=== PATIENT | female | born 1975 | race American Indian/Alaskan Native ===

== ENCOUNTER 2016-09-16 19:15 | Emergency (ER) | payer BC, MEDICAID ==
[2016-09-16 19:28] VITALS: BMI 28.5
[2016-09-16 19:30] VITALS: TEMP 97.4
--- NOTE | 2016-09-16 20:11 | ED PDOC ---
Arrival/HPI - General Chief Complaint: Back Pain Time Seen by Provider: 09/16/16 19:40 Historian: Patient - History of Present Illness Narrative History of Present Illness (Text): 09/16/16 20:08 41yo female present with complaint of lower back pain x 2weeks. States she was seen by her PMD for the pain and given medication but is not helping. Pain is usually worse with flexion or after doing house chores. She denies trauma, focal weakness, urinary/fecal incontinence, abdominal pain, urinary symptoms, any other complaint. Past Medical History - Provider Review Nursing Documentation Reviewed: Yes - Infectious Disease Hx of Infectious Diseases: None - Tetanus Immunization Tetanus Immunization: Unknown - Cardiac Hx Hypertension: Yes - Pulmonary Hx Tuberculosis: No - Neurological HX Cerebrovascular Accident: No Hx Seizures: No - Renal Hx Renal Disorder: No - Endocrine/Metabolic Hx Endocrine Disorders: No - Hematological/Oncological Hx Blood Disorders: No Hx Cancer: No - Integumentary Hx Dermatological Disorder: No - Musculoskeletal/Rheumatological Hx Musculoskeletal Disorders: No - Gastrointestinal Hx Gastrointestinal Disorders: No - Genitourinary/Gynecological Hx Genitourinary Disorders: No Hx Sexually Transmitted Diseases: No - Psychiatric Hx Anxiety: Yes Hx Depression: Yes Hx Emotional Abuse: No Hx Physical Abuse: No 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) - Past Surgical History Past Surgical History: No Previous - Anesthesia Hx Anesthesia: No - Suicidal Assessment Feels Threatened In Home Enviroment: No Family/Social History - Physician Review Nursing Documentation Reviewed: Yes Family/Social History: Unknown Family HX Smoking Status: Never Smoked Hx Alcohol Use: Yes (few drinks tonight) Frequency of alcohol use: Socially Amount per day: 4 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) Substance used: cocaine Hx Substance Use Treatment: No Allergies/Home Meds Allergies/Adverse Reactions: Allergies tomato Allergy (Verified 09/16/16 19:28) ITCHING Home Medications: Home Meds Medication Instructions Recorded Confirmed QUEtiapine [SEROquel] 50 mg PO HS 06/03/16 09/16/16 Sertraline HCl [Zoloft] 25 mg PO DAILY 06/03/16 09/16/16 amLODIPine [Norvasc] 5 mg PO DAILY 06/03/16 09/16/16 Review of Systems - Physician Review All systems were reviewed & negative as marked: Yes - Review of Systems Constitutional: Normal Eyes: Normal ENT: Normal Respiratory: Normal Cardiovascular: Normal Gastrointestinal: Normal Genitourinary Female: Normal Musculoskeletal: Back Pain Skin: Normal Neurological: Normal Endocrine: Normal Hemo/Lymphatic: Normal Psychiatric: Normal Physical Exam Vital Signs Reviewed: Yes Vital Signs Temp Pulse Resp BP Pulse Ox 09/16/16 19:30 97.4 F L 118 H 16 113/82 100 Temperature: Afebrile Blood Pressure: Normal Pulse: Tachycardic Respiratory Rate: Normal Appearance: Positive for: Well-Appearing, Non-Toxic, Comfortable Pain Distress: None Mental Status: Positive for: Alert and Oriented X 3 - Systems Exam Head: Present: Atraumatic, Normocephalic Pupils: Present: PERRL Extroacular Muscles: Present: EOMI Conjunctiva: Present: Normal Mouth: Present: Moist Mucous Membranes Neck: Present: Normal Range of Motion Respiratory/Chest: Present: Clear to Auscultation, Good Air Exchange. No: Respiratory Distress, Accessory Muscle Use Cardiovascular: Present: Regular Rate and Rhythm, Normal S1, S2. No: Murmurs Abdomen: Present: Normal Bowel Sounds. No: Tenderness, Distention, Peritoneal Signs Back: Present: Midline Tenderness, Paraspinal Tenderness. No: Pain with Leg Raise Upper Extremity: Present: Normal Inspection. No: Cyanosis, Edema Lower Extremity: Present: Normal Inspection. No: Edema Neurological: Present: GCS=15, CN II-XII Intact, Speech Normal Skin: Present: Warm, Dry, Normal Color. No: Rashes Psychiatric: Present: Alert, Oriented x 3, Normal Insight, Normal Concentration Medical Decision Making ED Course and Treatment: 09/16/16 21:33 LS xray - No acute finding Pt's pain improved in ED. She was ambulatory. She have no neurological deficit. Result was DW the pt. she was referred to ortho. CT home with flexeril and Naprosyn. [facility] ED for any new or worsening symptoms. - Lab Interpretations Lab Results: Lab Results 09/16/16 20:15: Urine Color Yellow, Urine Appearance Sl cloudy, Urine pH 6.5, Ur Specific [place] <= 1.005, Urine Protein Negative, Urine Glucose (UA) Negative, Urine Ketones Negative, Urine Blood Trace-lysed H, Urine Nitrate Negative, Urine Bilirubin Negative, Urine Urobilinogen 0.2, Ur Leukocyte Esterase Small H, Urine RBC 0 - 2, Urine WBC Negative, Ur Epithelial Cells 0 - 2 - RAD Interpretation Radiology Orders: 09/16/16 19:57 LS SPINE WITH OBL > 18 YRS OLD [RAD] Stat - Medication Orders Current Medication Orders: Discontinued Medications Diazepam (Valium) 5 mg PO ONCE ONE PRN Reason: Protocol Stop: 09/16/16 20:00 Last Admin: 09/16/16 20:16 Dose: 5 mg Ketorolac Tromethamine (Toradol) 60 mg IM STAT STA Stop: 09/16/16 20:00 Last Admin: 09/16/16 20:16 Dose: 60 mg Disposition/Present on Arrival - Present on Arrival Any Indicators Present on Arrival: No History of DVT/PE: No History of Uncontrolled Diabetes: No Urinary Catheter: No History of Decub. Ulcer: No History Surgical Site Infection Following: None - Disposition Have Diagnosis and Disposition been Completed?: Yes Diagnosis: Back pain Disposition: HOME/ ROUTINE Disposition Time: 21:40 Patient Plan: Discharge Condition: STABLE Discharge Instructions (ExitCare): Back Pain (ED) Additional Instructions: Follow up with orthopedist Return to ED for any new or worsening symptoms Prescriptions: Cyclobenzaprine [Cyclobenzaprine HCl] 10 mg PO TID #10 tab Naproxen [Naprosyn] 500 mg PO BID #20 tab Referrals: Telly Deng DO [Staff Provider] - Follow up with primary
[2016-09-16 20:25] LABS: PH,URINE 6.5 (4.7-8.0); URINE BILIRUBIN NEGATIVE (NEGATIVE); URINE BLOOD TRACE-LYSED (NEGATIVE); URINE GLUCOSE (UA) NEGATIVE (NEGATIVE); URINE KETONE NEGATIVE (NEGATIVE); URINE LEUKOCYTE ESTERASE SMALL Leu/uL (NEGATIVE); URINE PROTEIN NEGATIVE mg/dL (<30 mg/dL); URINE UROBILINOGEN 0.2 E.U./dL (<1 E.U./dL)
[2016-09-16 20:30] LABS: URINE APPEARANCE SL CLOUDY (CLEAR); URINE COLOR YELLOW (YELLOW)
[2016-09-16 20:44] LABS: URINE EPITHELIAL CELLS 0 - 2 /hpf (0-5); URINE RBC 0 - 2 /hpf (0-2); URINE WBC NEGATIVE /hpf (0-6)
[2016-09-16 21:43] VITALS: BP 121/71; PULSE 90; RESP 18; O2SAT 99
--- NOTE | 2016-09-17 10:14 | RAD ---
PROCEDURE: Radiographs of the Lumbar Spine. HISTORY: back pain COMPARISON: No prior. FINDINGS: BONES: No evidence of acute compression fractures nor retropulsed fragments. Vertebral bodies exhibit normal stature. There is slight scoliosis convex left versus muscle spasm with side bending to the right. DISC SPACES: Disc space heights are maintained. . Small marginal anterior osteophyte formation noted at the L5-S1 and L4-L5 levels. OTHER FINDINGS: None. IMPRESSION: No acute fractures. Mild levoscoliosis versus muscle spasm/ side bending to the right
== END 2016-09-16 22:08 | disposition home or self-care (01) ==
LOC: ED 19:15
DX: M54.5 Low back pain (principal)
CPT/HCPCS: 72110; 81001; 87086; 96372; 99283; J1885

== ENCOUNTER 2016-12-09 21:06 | Emergency (ER) | payer BC, MEDICAID ==
[2016-12-09 21:19] VITALS: BMI 29.8
[2016-12-09 21:21] VITALS: BP 126/77; PULSE 104; RESP 18; TEMP 98.3; O2SAT 98
--- NOTE | 2016-12-09 22:07 | ED PDOC ---
Arrival/HPI - General Chief Complaint: Lower Extremity Problem/Injury Time Seen by Provider: 12/09/16 21:46 Historian: Patient - History of Present Illness Narrative History of Present Illness (Text): 12/09/16 22:04 41 yo F presents to ER c/o several day h/o R foot / ankle pain, states that she had fractured her foot in May and was seen and evaluated here. She then f/u with a specialist who treated her with a cast. She still f/u with her senior procurement specialist, and recently sent her to PT for chronic R foot and ankle pain. Currently does not take any analgesics for her symptoms and only wears a wrap to her foot. Denies any fever, chills, other joint pain, any new trauma or injury, swelling, knee pain or calf pain. Has no other complaints. Past Medical History - Provider Review Nursing Documentation Reviewed: Yes - Infectious Disease Hx of Infectious Diseases: None - Tetanus Immunization Tetanus Immunization: Unknown - Cardiac Hx Hypertension: Yes - Pulmonary Hx Tuberculosis: No - Neurological HX Cerebrovascular Accident: No Hx Seizures: No - Renal Hx Renal Disorder: No - Endocrine/Metabolic Hx Endocrine Disorders: No - Hematological/Oncological Hx Blood Disorders: No Hx Cancer: No - Integumentary Hx Dermatological Disorder: No - Musculoskeletal/Rheumatological Hx Musculoskeletal Disorders: No - Gastrointestinal Hx Gastrointestinal Disorders: No - Genitourinary/Gynecological Hx Genitourinary Disorders: No Hx Sexually Transmitted Diseases: No - Psychiatric Hx Anxiety: Yes Hx Depression: Yes Hx Emotional Abuse: No Hx Physical Abuse: No 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) - Past Surgical History Past Surgical History: No Previous - Anesthesia Hx Anesthesia: No - Suicidal Assessment Feels Threatened In Home Enviroment: No Family/Social History - Physician Review Nursing Documentation Reviewed: Yes Family/Social History: No Known Family HX Smoking Status: Never Smoked Hx Alcohol Use: Yes (few drinks tonight) Amount per day: 4 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) Substance used: cocaine Hx Substance Use Treatment: No Allergies/Home Meds Allergies/Adverse Reactions: Allergies tomato Allergy (Verified 09/16/16 19:28) ITCHING Home Medications: Home Meds Medication Instructions Recorded Confirmed QUEtiapine [SEROquel] 50 mg PO HS 06/03/16 12/09/16 Sertraline HCl [Zoloft] 25 mg PO DAILY 06/03/16 12/09/16 amLODIPine [Norvasc] 5 mg PO DAILY 06/03/16 12/09/16 Review of Systems - Review of Systems Constitutional: Normal. absent: Fatigue, Weight Change, Fevers Musculoskeletal: Normal, Arthralgias. absent: Back Pain, Neck Pain, Joint Swelling Skin: Normal. absent: Rash, Pruritis, Skin Lesions Physical Exam Vital Signs Reviewed: Yes Vital Signs Temp Pulse Resp BP Pulse Ox 12/09/16 21:20 98.3 F 104 H 18 126/77 98 Temperature: Afebrile Blood Pressure: Normal Pulse: Tachycardic Respiratory Rate: Normal Appearance: Positive for: Well-Appearing, Non-Toxic, Comfortable Pain Distress: None Mental Status: Positive for: Alert and Oriented X 3 - Systems Exam Lower Extremity: Present: Normal Inspection, NORMAL PULSES, Normal ROM, Neurovascularly Intact, Capillary Refill < 2 s. No: Edema, CALF TENDERNESS, Cyanosis, Vero's Sign, Tenderness, Swelling, Erythema, Deformity, Temperature Abnormalties Neurological: Present: GCS=15, CN II-XII Intact, Motor Func Grossly Intact, Normal Sensory Function Skin: Present: Warm, Dry, Normal Color. No: Rashes, Erythematous, Cold Medical Decision Making ED Course and Treatment: 12/09/16 22:07 41 yo F presents to ER c/o several day h/o R foot / ankle pain, has a h/o fracture to the R foot dx in May, currently she f/u with a specialist sent her to PT. Prior ED visits reviewed, pt was seen here in 06/03/16, was dx with an avulsion fracture to the navicular bone of the R foot. Pt medicated with naprosyn po, advised to take NSAIDs as Rx and to take with food to avoid gastritis and stomach ulcers. Otherwise encouraged to continue PT and f/u with senior procurement specialist. Instructed to return to the ER at any time for any new or worsening symptoms. - PA / [employer] / Resident Statement MD/DO has reviewed & agrees with the documentation as recorded. Disposition/Present on Arrival - Present on Arrival Any Indicators Present on Arrival: No History of DVT/PE: No History of Uncontrolled Diabetes: No Urinary Catheter: No History of Decub. Ulcer: No History Surgical Site Infection Following: None - Disposition Have Diagnosis and Disposition been Completed?: Yes Diagnosis: H/O fracture of foot, Foot pain, right Disposition: HOME/ ROUTINE Disposition Time: 22:11 Patient Plan: Discharge Condition: GOOD Discharge Instructions (ExitCare): Arthritis (ED), Arthralgia (ED) Print Language: MONTSERRATIAN Additional Instructions: Continue to follow up with your senior procurement specialist and continue physical therapy. Take medication as prescribed. Return to the ER at any time for any new or worsening symptoms. Prescriptions: Meloxicam [Mobic] 15 mg PO DAILY PRN #30 tab PRN Reason: Pain, Moderate (4-7) Referrals: Quinten James, [Primary Care Provider] - Follow up with primary Forms: WORK NOTE
[2016-12-09] MEDS ORDERED: Naproxen 550 mg Tab PO STA (22:22)
== END 2016-12-09 22:31 | disposition home or self-care (01) ==
LOC: ED 21:06
DX: M79.671 Pain in right foot (principal); Z87.81 Personal history of (healed) traumatic fracture

== ENCOUNTER 2018-01-31 19:21 | Emergency (ER) | payer MEDICAID ==
[2018-01-31 19:35] VITALS: BMI 33.3
[2018-01-31 19:41] VITALS: BP 133/94; PULSE 119; RESP 18; TEMP 98.8; O2SAT 97
--- NOTE | 2018-01-31 19:43 | ED PDOC ---
Arrival/HPI - General Chief Complaint: Psychiatric Evaluation Time Seen by Provider: 01/31/18 19:27 Historian: Patient - History of Present Illness Narrative History of Present Illness (Text): 01/31/18 19:45 42 year old female, with past medical history of hypertension, anxiety and depression on Seroquel and Zoloft medications, presents to the Emergency department for evaluation following periods of suicidal ideation this evening. Patient expresses suicidal ideation with plan to jump off of a bridge. When questioned, patient states she is tired of her life in general and has been facing issues with her boyfriend of many years. However, patient refuses to elaborate. Patient does admit to alcohol abuse but denies any substance use. Patient currently denies any somatic complaints. Patient denies any fevers, chills, headache, dizziness, chest pain, shortness of breath, dyspnea on exertion, cough, abdominal pain, nausea, vomiting, diarrhea, back pain, neck pain, or any other complaints. Time/Duration: < week Symptom Onset: Gradual Symptom Course: Unchanged Activities at Onset: Light Context: Home Past Medical History - Provider Review Nursing Documentation Reviewed: Yes - Infectious Disease Hx of Infectious Diseases: None - Tetanus Immunization Tetanus Immunization: Unknown - Cardiac Hx Hypertension: Yes - Pulmonary Hx Tuberculosis: No - Neurological HX Cerebrovascular Accident: No Hx Seizures: No - Renal Hx Renal Disorder: No - Endocrine/Metabolic Hx Endocrine Disorders: No - Hematological/Oncological Hx Blood Disorders: No Hx Cancer: No - Integumentary Hx Dermatological Disorder: No - Musculoskeletal/Rheumatological Hx Musculoskeletal Disorders: No - Gastrointestinal Hx Gastrointestinal Disorders: No - Genitourinary/Gynecological Hx Genitourinary Disorders: No Hx Sexually Transmitted Diseases: No - Psychiatric Hx Anxiety: Yes Hx Depression: Yes Hx Emotional Abuse: No Hx Physical Abuse: No 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) - Past Surgical History Past Surgical History: No Previous - Anesthesia Hx Anesthesia: No - Suicidal Assessment Feels Threatened In Home Enviroment: No Family/Social History - Physician Review Nursing Documentation Reviewed: Yes Family/Social History: No Known Family HX Smoking Status: Never Smoked Hx Alcohol Use: Yes (few drinks tonight) Frequency of alcohol use: Few days per week Amount per day: 4 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) Substance used: cocaine Hx Substance Use Treatment: No Allergies/Home Meds Allergies/Adverse Reactions: Allergies tomato Allergy (Verified 01/31/18 19:42) ITCHING Home Medications: Home Meds Medication Instructions Recorded Confirmed QUEtiapine [SEROquel] 50 mg PO HS 06/03/16 01/31/18 Sertraline HCl [Zoloft] 25 mg PO DAILY 06/03/16 01/31/18 amLODIPine [Norvasc] 5 mg PO DAILY 06/03/16 01/31/18 Review of Systems - Physician Review All systems were reviewed & negative as marked: Yes - Review of Systems Constitutional: absent: Fevers Respiratory: absent: SOB Cardiovascular: absent: Chest Pain, MONAE Gastrointestinal: absent: Abdominal Pain, Diarrhea, Nausea, Vomiting Musculoskeletal: absent: Back Pain, Neck Pain Neurological: absent: Headache, Dizziness Psychiatric: Suicidal Ideation Physical Exam Vital Signs Reviewed: Yes Vital Signs Temp Pulse Resp BP Pulse Ox 01/31/18 19:40 98.8 F 119 H 18 133/94 H 97 Temperature: Afebrile Blood Pressure: Hypertensive Pulse: Tachycardic Respiratory Rate: Normal Appearance: Positive for: Well-Appearing, Non-Toxic, Comfortable Pain Distress: None Mental Status: Positive for: Alert and Oriented X 3 - Systems Exam Head: Present: Atraumatic, Normocephalic Pupils: Present: PERRL Extroacular Muscles: Present: EOMI Conjunctiva: Present: Normal Mouth: Present: Moist Mucous Membranes Neck: Present: Normal Range of Motion Respiratory/Chest: Present: Clear to Auscultation, Good Air Exchange. No: Respiratory Distress, Accessory Muscle Use Cardiovascular: Present: Regular Rate and Rhythm, Normal S1, S2. No: Murmurs Abdomen: No: Tenderness, Distention, Peritoneal Signs Back: Present: Normal Inspection Upper Extremity: Present: Normal Inspection. No: Cyanosis, Edema Lower Extremity: Present: Normal Inspection. No: Edema Neurological: Present: GCS=15, CN II-XII Intact, Speech Normal, Motor Func Grossly Intact, Normal Sensory Function Skin: Present: Warm, Dry, Normal Color. No: Rashes Psychiatric: Present: Alert, Oriented x 3, Anxious, Intoxicated Medical Decision Making ED Course and Treatment: 01/31/18 19:42 Impression: 42 year old female presents to the Emergency department for evaluation of episodes of suicidal ideation. Plan: -- EKG -- Labs -- Chest X-ray -- Reassess and disposition Prior Visits: Notes and results from previous visits were reviewed. Progress Notes: 01/31/18 20:09 EKG: Ordered, reviewed, and independently interpreted the EKG. Rate : 111 BPM Rhythm : Sinus Tachycardia Interpretation : Non-specific t wave changes. 02/01/18 05:49: Chest X-ray read and interpreted by me shows no acute process. 02/01/18 05:49: Patient medically cleared. Patient was seen by Genevieve from [facility], she discussed case with Dr. Ram (Psychiatrist). Patient no longer expresses any suicidal ideation now that she is sober. As per psychiatry patient to be discharged home to follow up as an outpatient. - Lab Interpretations Lab Results: 01/31/18 19:45 01/31/18 19:45 Lab Results 01/31/18 22:56: Urine Opiates Screen Negative, Urine Methadone Screen Negative, Ur Barbiturates Screen Negative, Ur Phencyclidine Scrn Negative, Ur Amphetamines Screen Negative, U Benzodiazepines Scrn Negative, U Oth Cocaine Metabols Negative, U Cannabinoids Screen Negative 01/31/18 19:45: Alcohol, Quantitative 253 H 01/31/18 19:45: WBC 9.2, RBC 4.91, Hgb 12.5, Hct 38.2, MCV 77.8 L, MCH 25.5, MCHC 32.7, RDW 15.3 H, Plt Count 418, MPV 8.3 01/31/18 19:45: Sodium 146, Potassium 3.5 L, Chloride 110 H, Carbon Dioxide 21, Anion Gap 18, BUN 7, Creatinine 0.7, Est GFR ( Amer) > 60, Est GFR (Non- Af Amer) > 60, Random Glucose 122 H, Calcium 9.5, Total Bilirubin 0.2, AST 30, ALT 14, Alkaline Phosphatase 72, Total Protein 9.1 H, Albumin 4.8, Globulin 4.3 , Albumin/Globulin Ratio 1.1 - RAD Interpretation Radiology Orders: 01/31/18 19:42 CHEST PORTABLE [RAD] Stat - EKG Interpretation Interpreted by ED Physician: Yes Type: 12 lead EKG - Medication Orders Current Medication Orders: Discontinued Medications Alprazolam (Xanax) 0.5 mg PO ONCE ONE Stop: 01/31/18 20:16 Last Admin: 01/31/18 20:26 Dose: 0.5 mg - Scribe Statement The provider has reviewed the documentation as recorded by the Scribe Diamante Edmondson. All medical record entries made by the Naldoibe were at my direction and personally dictated by me. I have reviewed the chart and agree that the record accurately reflects my personal performance of the history, physical exam, medical decision making, and the department course for this patient. I have also personally directed, reviewed, and agree with the discharge instructions and disposition. Disposition/Present on Arrival - Present on Arrival Any Indicators Present on Arrival: No History of DVT/PE: No History of Uncontrolled Diabetes: No Urinary Catheter: No History of Decub. Ulcer: No History Surgical Site Infection Following: None - Disposition Have Diagnosis and Disposition been Completed?: Yes Diagnosis: Depression, Alcohol abuse Disposition: HOME/ ROUTINE Disposition Time: 05:52 Patient Plan: Discharge Condition: GOOD Additional Instructions: Follow up out patient this week Referrals: [facility] - Follow up with primary Forms: MIKESTAR (Croatian)
[2018-01-31 20:31] LABS: HEMOGLOBIN 12.5 g/dL (12.0-16.0); MEAN CELL VOLUME 77.8 fl (80.0-105.0); MEAN CORPUSCULAR HEMOGLOBIN 25.5 pg (25.0-35.0); MEAN CORPUSCULAR HGB CONC 32.7 g/dl (31.0-37.0); MEAN PLATELET VOLUME 8.3 fl (7.0-11.0); RBC 4.91 10^6/uL (3.5-6.1); RED CELL DISTRIBUTION WIDTH 15.3 % (11.5-14.5); WHITE BLOOD COUNT 9.2 10^3/ul (4.5-11.0)
[2018-01-31 20:37] LABS: ALB/GLOB RATIO 1.1 (1.1-1.8); ALBUMIN 4.8 g/dL (3.0-4.8); ALT/SGPT 14 U/L (7-56); AST/SGOT 30 U/L (14-36); BLOOD UREA NITROGEN 7 mg/dL (7-21); CALCIUM 9.5 mg/dL (8.4-10.5); GFR NON-AFRICAN AMERICAN > 60
[2018-02-01 00:57] LABS: BARBITURATES, UR NEGATIVE (NEGATIVE); BENZODIAZEPINES, UR NEGATIVE (NEGATIVE); OPIATES, UR NEGATIVE (NEGATIVE); PHENCYCLIDINE, UR NEGATIVE (NEGATIVE)
--- NOTE | 2018-02-01 08:10 | RAD ---
Date of service: 02/01/2018 HISTORY: medical clearance COMPARISON: No prior. FINDINGS: LUNGS: No active pulmonary disease. PLEURA: No significant pleural effusion identified, no pneumothorax apparent. CARDIOVASCULAR: Normal. OSSEOUS STRUCTURES: No significant abnormalities. VISUALIZED UPPER ABDOMEN: Normal. OTHER FINDINGS: None. IMPRESSION: No active disease.
--- NOTE | 2018-02-01 17:40 | CARD ---
APPROVED REPORT Date of service: 01/31/2018 EKG Measurement Heart [id number] <Conclusion> Sinus tachycardia Minimal voltage criteria for LVH, may be normal variant Nonspecific T wave abnormality Abnormal ECG
== END 2018-02-01 06:10 | disposition home or self-care (01) ==
LOC: ED 19:21
DX: F32.9 Major depressive disorder, single episode, unspecified (principal); F10.10 Alcohol abuse, uncomplicated; Y90.8 Blood alcohol level of 240 mg/100 ml or more; I10 Essential (primary) hypertension; F41.9 Anxiety disorder, unspecified